=== PATIENT | female | born 1985 | race Caucasian/White ===

== ENCOUNTER → 2020-07-10 | Outpatient (CLI) | payer BC, OTHER ==
[~2020-07-10] MED LIST: IMITREX 50 MG T50 MG PO; ONDANSETRON HCL4 M2 PO; SEASONALE1 EACH PO; ZARAH TABLET1 EACH PO
== END ==
LOC: LAB 13:23
PROVIDERS: ATTEND Nurse Practitioner
DX: F50.9 Eating disorder, unspecified (principal); Z20.828 Contact with and (suspected) exposure to other viral communicable diseases

== ENCOUNTER → 2021-01-10 | Outpatient (CLI) | payer BC, OTHER | LOC: RAD 09:38 | PROVIDERS: ATTEND Nurse Practitioner | DX: N64.4 Mastodynia (principal); L30.9 Dermatitis, unspecified ==